=== PATIENT | male | born 1970 | race African-American/Black ===

== ENCOUNTER 2017-12-28 08:36 | Observation (INO) | payer SELFPAY ==
[2017-12-28] MEDS ORDERED: Ondansetron ODT 4 MG TAB ONE (09:28)
[2017-12-28 09:32] LABS: ALT (SGPT) 14 U/L (8-55); AST (SGOT) 17 U/L (5-34); Albumin 4.6 g/dL (3.5-5.0); Alkaline Phosphatase 71 U/L (40-150); Anion Gap 13 mmol/L (10-20); BUN (Urea Nitrogen) 18 mg/dL (8.9-20.6); Bilirubin, Total 0.7 mg/dL (0.2-1.2); Calc. Creatinine Clearance 0 mL/min (70-130); Calcium 10.2 mg/dL (7.8-10.44); Carbon Dioxide 26 mmol/L (22-29); Chloride 103 mmol/L (98-107); Estimated GFR-MDRD Greater than 90; Globulin 4.1 g/dL (2.4-3.5); Glucose 108 mg/dL (70-105); Potassium 5.1 mmol/L (3.5-5.1); Protein, Total 8.7 g/dL (6.0-8.3); Sodium 137 mmol/L (136-145)
[2017-12-28 09:46] LABS: #Basophils 0.1 thou/uL (0.0-0.2); #Monocytes 0.4 thou/uL (0.11-0.59); #Neutrophils 4.4 thou/uL (1.40-6.50); %Basophils 1.4 % (0.0-1.0); %Eosinophils 0.3 % (0.0-10.0); %Lymphocytes 16.5 % (21.0-51.0); %Monocytes 6.9 % (0.0-10.0); %Neutrophils 74.9 % (42.0-75.0); Mean Corpuscular HGB CONC 32.9 g/dL (32.0-36.0); Mean Corpuscular Hemoglobin 28.4 pg (27.0-31.0); Mean Corpuscular Volume 86.4 fL (78.0-98.0); Mean Platelet Volume 7.9 fL (7.4-10.4); Platelet Count 164 thou/uL (130-400); RBC Distribution Width 11.6 % (11.5-14.5); Red Blood Cell (RBC) Count 5.64 mill/uL (4.70-6.10); White Blood Cell (WBC) Count 5.8 thou/uL (4.8-10.8)
[2017-12-28] MEDS ORDERED: Ondansetron HCl/PF 4 MG/2 ML Vial IVP PRN (10:53)
[2017-12-28] MEDS ORDERED: Acetaminophen 325 MG TAB PO PRN (10:53)
[2017-12-28] MEDS ORDERED: Ondansetron ODT 4 MG TAB PO PRN (10:53)
[2017-12-28] MEDS ORDERED: Sodium Chloride 0.9% 1,000 ML IV SCH (11:00)
[2017-12-28 12:38] VITALS: BMI 18.3
[2017-12-28 12:45] LABS: Cardiac Risk 3.3 (Less than 4.5)
--- NOTE | 2017-12-28 13:44 | HP ---
PRIMARY CARE PHYSICIAN: None. PRESENTING COMPLAINT: Nausea and vomiting. HISTORY OF PRESENT ILLNESS: Mr. Caden Zamora is a 47-year-old male with a past medical history of hypertension and hyperlipidemia, who presents to the hospital with a 1 day history of persistent n ausea and vomiting. He reports this started last night and had about 5 episodes of vomiting consisti ng of recently ingested meals. He reports he ate some food from a food truck yesterday afternoon at work, but denies fevers, no chills. No other person with similar symptoms. He reports a similar epi sode about last year, which he attributed to food poisoning. He has no history of peptic ulcer disea se. He does not drink alcohol regularly. He drinks 1-2 beers on occasion. He also does not smoke c igarettes. He did associate it with some epigastric discomfort, but does not report any overt pain. There is no associated diarrhea. He has no urinary symptoms. He denies chest pain, shortness of br eath, palpitations, PND, orthopnea, lower extremity edema. PAST MEDICAL HISTORY: Hypertension, hyperlipidemia. PAST SURGICAL HISTORY: No previous surgeries. FAMILY HISTORY: Reviewed and noncontributory. SOCIAL HISTORY: He drinks 1-2 beers on occasion, he does not smoke cigarettes or use illicit drugs. ALLERGIES: No known drug allergies. HOME MEDICATIONS: Reviewed. REVIEW OF SYSTEMS: All systems reviewed and negative except stated in HPI. PHYSICAL EXAMINATION: VITAL SIGNS: Blood pressure 160/101, oxygen saturation 100% on room air, respiratory rate 16, pulse rate 84, temperature 98.3 degrees Fahrenheit. GENERAL: The patient is lying down in bed, not in acute distress. HEENT: Normocephalic, atraumatic. Not pale, anicteric. Moist mucous membranes. NECK: Supple, full range of movement. CARDIOVASCULAR: S1, S2 only. No murmurs, rubs, gallops. Regular rate and rhythm. RESPIRATORY: Vesicular breath sounds bilaterally. No wheezes, rales or rhonchi. ABDOMEN: Soft, slight tenderness on palpation in the epigastric region, but no rebound tenderness or guarding. Bowel sounds normoactive. No hepatosplenomegaly. NEUROLOGIC: Alert and well oriented to time, place and person. No focal deficits. MUSCULOSKELETAL: Skin is warm, dry, well-perfused. No rashes or lesions. LABORATORY DATA: CBC was largely unremarkable. CMP was unremarkable. Potassium of 5.1 and lipase 3 000. ASSESSMENT AND PLAN: 1. Pancreatitis, questionable cause. 2. Hypertension. 3. Hyperlipidemia. PLAN: 1. The cause of his pancreatitis is unknown. He has markedly high lipase. He is not a known alcoho lic and does not have any other medical conditions apart from hypertension and some hyperlipidemia. We will admit him to the medical floor, obtain fasting lipid profile, right upper quadrant ultrasound . He will be kept n.p.o. for now and started on IV hydration and pain control. We will also obtain GI consult for possible gallstone pancreatitis. 2. Hypertension, currently not at goal. Will start on amlodipine 5 mg daily and monitor blood press ure closely. 3. Hyperlipidemia. The patient will be started on a statin. CODE STATUS: FULL CODE. Deep venous thrombosis prophylaxis. The patient is ambulatory, so does not require any DVT prophylax is.
--- NOTE | 2017-12-28 13:47 | ULT ---
RIGHT UPPER QUADRANT ULTRASOUND: Date: 12-28-17 Comparison: None. History: Nausea, vomiting. Technique: Multiplanar grayscale sonographic imaging of the right upper quadrant obtained. FINDINGS: The imaged pancreas is unremarkable. The distal body and tail are obscured by bowel gas. No focal liver lesion or intrahepatic biliary dilatation is noted. The common bile duct measures 4 mm, within normal limits. There is no gallbladder wall thickening or pericholecystic fluid. There is gallbladder sludge/debris. No discrete stones are noted. Right kidney measures 9.1 cm in craniocaudal dimension and demonstrates no stone, hydronephrosis or m ass. IMPRESSION: Significant sludge/debris within the gallbladder. No discrete gallstones are seen. Presence of debris and sludge limits assessment for tiny stones. No sonographic evidence of cholecystitis or biliary di latation. POS: BLANK
[2017-12-28] MEDS: Sodium Chloride 0.9% 1,000 ML IV SCH ×2 (14:30→19:22)
[2017-12-28 19:45] LABS: Amphetamine Not Detected (NotDetected); Barbiturates Screen Not Detected (NotDetected); Benzodiazepine Screen Not Detected (NotDetected); Cocaine Metabolite Screen Not Detected (NotDetected); Medtox Control Line Valid? VALID (VALID); Medtox Reader # READER 1; Methadone Not Detected (NotDetected); Methamphetamine Not Detected (NotDetected); Opiate Screen Not Detected (NotDetected); Oxycodone Screen Not Detected (NotDetected); Phencyclidine (PCP) Not Detected (NotDetected); THC/Cannabinoid Screen Not Detected (NotDetected); Tricyclic Screen Not Detected (NotDetected)
[2017-12-28 20:22] LABS: Hemoglobin 14.3 g/dL (14.0-18.0)
[2017-12-28] MEDS: Famotidine 20 MG TAB PO SCH (20:32)
[2017-12-28] MEDS: Pantoprazole 40 MG VIAL IVP SCH (20:33)
[2017-12-28] MEDS ORDERED: Simvastatin 40 MG TAB PO SCH (21:00)
[2017-12-29] MEDS: Sodium Chloride 0.9% 1,000 ML IV SCH ×3 (00:28→12:33)
--- NOTE | 2017-12-29 05:18 | CON ---
DATE OF CONSULTATION: 12/28/2017 HISTORY OF PRESENT ILLNESS: The patient is a 47-year-old -[place] gentleman, who was in his normal state of health until the day prior to admission when he developed nausea and vomiting. He reynaga d several episodes of vomiting and came to the emergency room. He really denies any abdominal pain, but he further questioning, he did have some cramps that seemed to be in his upper abdomen. He has n ot had prior episodes of abdominal pain or vomiting or pancreatitis. He has had a previous episode o f food poisoning. He reports he drinks approximately 14 beers per week, sometimes averaging 2 beers a day, sometimes he will drink 4 beers, but he says then he will not drink any the next day. He brenton es any weight loss, any change in bowel function. PAST MEDICAL HISTORY: Includes hypertension and high cholesterol. He has not been on any treatment for that lately. PAST SURGICAL HISTORY: Negative. SOCIAL HISTORY: Alcohol as above. He does not smoke. FAMILY HISTORY: Negative for pancreatitis. ALLERGIES: No known allergies. MEDICATIONS: None at the present time. REVIEW OF SYSTEMS: Ten systems were reviewed and were negative for above. PHYSICAL EXAMINATION: GENERAL: Shows a thin black male, in no acute distress. VITAL SIGNS: Temperature 98.6, pulse 79, respiratory rate 15, blood pressure 134/90. HEENT: Unremarkable. NECK: Supple. CHEST: Clear. CARDIOVASCULAR: Regular rate and rhythm without murmurs or gallops. ABDOMEN: Soft, nontender, without organomegaly or masses. Bowel sounds are present and normoactive. RECTAL: Deferred. EXTREMITIES: Normal. NEUROLOGIC: Nonfocal. LABORATORY DATA AND IMAGING: Shows a normal CBC. Chemistries show glucose 108, total protein 8.7, g lobulin 4.1, lipase of 3019, cholesterol 221, triglycerides 69. Tox screen is negative. Ultrasound showed gallbladder sludge without biliary dilatation. ASSESSMENT: 1. Idiopathic pancreatitis - alcohol versus gallbladder sludge, no clear etiology at this time. 2. History of hypertension, not presently on medications. RECOMMENDATIONS: 1. Begin clear liquids. 2. Recheck a lipase in a.m. 3. Stat H&H to make sure the patient is getting some hemodilution. 4. Advance diet tomorrow if he is tolerating clear liquids well. 5. No cholecystectomy at this time. 6. Decrease alcohol consumption.
[2017-12-29 05:23] LABS: ALT (SGPT) 9 U/L (8-55); AST (SGOT) 11 U/L (5-34); Albumin 3.4 g/dL (3.5-5.0); Alkaline Phosphatase 49 U/L (40-150); Anion Gap 8 mmol/L (10-20); BUN (Urea Nitrogen) 13 mg/dL (8.9-20.6); Bilirubin, Total 0.8 mg/dL (0.2-1.2); Calc. Creatinine Clearance 97 mL/min (70-130); Calcium 8.7 mg/dL (7.8-10.44); Carbon Dioxide 26 mmol/L (22-29); Cardiac Risk 3.2 (Less than 4.5); Chloride 107 mmol/L (98-107); Cholesterol 151 mg/dl (< 200 Desired); Estimated GFR-MDRD Greater than 90; Globulin 2.8 g/dL (2.4-3.5); Glucose 93 mg/dL (70-105); HDL Cholesterol 47 mg/dL (>60 Neg Risk); LDL Cholesterol, Calculated 92 mg/dL; Potassium 4.2 mmol/L (3.5-5.1); Protein, Total 6.2 g/dL (6.0-8.3); Sodium 137 mmol/L (136-145); Triglycerides 60 mg/dL (Less than 150)
[2017-12-29 05:27] LABS: Lipase 1082 U/L (8-78)
[2017-12-29 06:04] LABS: Band 7 % (5-11); Eosinophils 3 % (0-10); Hemoglobin 12.6 g/dL (14.0-18.0); Lymphocytes 26 % (21-51); MDiff Complete? YES; Mean Corpuscular HGB CONC 33.1 g/dL (32.0-36.0); Mean Corpuscular Hemoglobin 28.6 pg (27.0-31.0); Mean Corpuscular Volume 86.2 fL (78.0-98.0); Mean Platelet Volume 7.5 fL (7.4-10.4); Monocytes 10 % (0-10); Neutrophil 54 % (42-75); Platelet Count 129 thou/uL (130-400); RBC Distribution Width 11.4 % (11.5-14.5); Red Blood Cell (RBC) Count 4.41 mill/uL (4.70-6.10); White Blood Cell (WBC) Count 4.7 thou/uL (4.8-10.8)
[2017-12-29 07:53] VITALS: BP 138/90; TEMP 98.2
[2017-12-29] MEDS ORDERED: Amlodipine 5 MG TAB PO SCH (09:00)
[2017-12-29] MEDS: Famotidine 20 MG TAB PO SCH (09:02)
[2017-12-29] MEDS: Pantoprazole 40 MG VIAL IVP SCH (09:02)
--- NOTE | 2017-12-30 09:50 | DIS ---
DATE OF ADMISSION: 12/28/2017 DATE OF DISCHARGE: 12/29/2017 DISCHARGE DIAGNOSES: Acute pancreatitis, hypertension, hyperlipidemia. HISTORY OF PRESENT ILLNESS/HOSPITAL COURSE: Mr. Caden Zamora is a 47-year-old male with past history of hypertension and hyperlipidemia, who presented to the hospital with a 1-day history of persistent nausea and vomiting associated with epigastric discomfort, it started the night before presenting, and he had at least 5 episodes of vomiting consisting of recently ingested meals. He reported eating from a food truck in the afternoon. He ate sausages, but denied fevers or chills and no other person with similar symptoms. He has no history of PUD and reports drinking 3-5 beers daily, but denies any withdrawal symptoms. He had a similar episode last year, which he attributed to food poisoning and then resolved spontaneously. At the emergency room, vital signs were stable. Abdominal examination revealed tender epigastrium with some guarding. He had an elevated lipase in 3000. He was diagnosed with acute pancreatitis and started on IV hydration and pain control. He had abdominal ultrasound of his right upper quadrant done, which revealed biliary sludge but no other acute abnormalities. He continued to improve and was able to tolerate a liquid diet and eventually advanced to a regular diet. He was reviewed by GI and was diagnosed with idiopathic pancreatitis, which likely chronic alcohol abuse contributing and also biliary sludge could be a contributing factor. His blood pressure and cholesterol level controlled while in the hospital. He was started on the statin and amlodipine. He is to follow up with his primary care physician within 1 week of discharge. DISCHARGE MEDICATIONS: Amlodipine 5 mg daily, Simvastatin 40 mg at bedtime. PHYSICAL EXAMINATION: He was seen and examined on the day of discharge. VITAL SIGNS: Blood pressure 138/90, oxygen saturation 99% on room air, respiratory rate 20, pulse rate 83, temperature 98.2 degree Fahrenheit. GENERAL: Not in acute distress. He is sitting up in bed and eating breakfast. HEENT: Normocephalic, atraumatic. Not pale, anicteric. Moist mucous membranes. NECK: Supple, full range of movement. CARDIOVASCULAR: S1 and S2, only with regular rate and rhythm. No murmurs, rubs or gallops. RESPIRATORY: Chest tympanic to auscultation bilaterally. No wheezes, rales or rhonchi. ABDOMEN: Bowel sounds normoactive, soft, nontender, nondistended. No hepatosplenomegaly. MUSCULOSKELETAL: No edema. PSYCHIATRIC: Normal mood and affect. NEUROLOGIC: Alert and well oriented to time, place and person. No focal deficits. SKIN: Warm, dry, well-perfused. No rashes or lesions. LABORATORY DATA: WBC 4.7, hemoglobin 12.6, platelet count 129. Sodium 137, potassium 4.2, chloride 107, carbon dioxide 26, anion gap 8, BUN 13, creatinine 0.81, glucose 93, calcium 8.7. Lipase on presentation was 3019 and improved to 1082 on day 1 of admission. IMAGING: Abdominal ultrasound- biliary sludge. CONSULTS: GI. CONDITION AT DISCHARGE: Stable and improved. PROCEDURES: None. CARE GOALS: Follow up with his primary care physician within 1 week of discharge to repeat the labs. ACTIVITY: Resume as tolerated. DIET: Low sodium, heart healthy. Discharge time 65 minutes including chart review and documentation. [facility]
== END 2017-12-29 13:24 | disposition home or self-care (01) ==
LOC: ERS 08:36 → 2SW 11:57
PROVIDERS: ADMIT Internal Medicine; ATTEND Internal Medicine
DX: K85.90 Acute pancreatitis without necrosis or infection, unspecified (principal); I10 Essential (primary) hypertension; E78.5 Hyperlipidemia, unspecified
CPT/HCPCS: 36415; 76705; 80053; 80061; 80306; 83690; 85025; 96360; 96361; 96374; 96376; C9113; G0378; Q0162